=== PATIENT | male | born 1970 | race Caucasian/White ===

== ENCOUNTER 2017-09-12 18:13 | Emergency (ER) | payer BC ==
[~2017-09-12] VITALS: Ht 177.8 cm; Wt 106.6 kg
[~2017-09-12 18:13] MED LIST: ACIPHEX 20 MG T20 M1 PO; AMLODIPINE BESY10 MG PO; APAP500 PO; CLEOCIN HCL150 MG PO; CLEOCIN HCL300 MG PO; FLONASE16 GM NASAL; HYDROCODON-ACE1 EACH PO; LEVAQUIN 500 M500 M2 PO; LISINOPRIL30 MG PO; MUCINEX600 MG PO; NORCO 5-325 TA1 EAC1 PO; NORCO 5-325 TA1 EACH PO; PREDNISONE 1 MG1 M1; PREDNISONE 20 M20 M1 PO; PREVACID30 MG PO; PROTONIX40 M1; PROTONIX40 M2 PO; SKELAXIN 800 M800 M1 PO; VENTOLIN HFA 1818 GM INH; ZPAK; ZPAK PO
[2017-09-12] MEDS ORDERED: MEDROLDOSEPACK PO (18:40)
[2017-09-12] MEDS ORDERED: TESTONE CI200 MG/1 M IM (18:40)
[2017-09-12 18:51] VITALS: BP 142/99
== END 2017-09-12 18:51 | disposition home or self-care (01) ==
LOC: M.ERS 18:13
DX: J02.9 Acute pharyngitis, unspecified (principal); J30.9 Allergic rhinitis, unspecified; H65.92 Unspecified nonsuppurative otitis media, left ear; I10 Essential (primary) hypertension; E78.00 Pure hypercholesterolemia, unspecified; Z88.0 Allergy status to penicillin

== ENCOUNTER 2018-04-19 14:15 | Emergency (ER) | payer BC ==
[~2018-04-19] VITALS: Ht 177.8 cm; Wt 106.1 kg
[~2018-04-19 14:15] MED LIST changes: +MEDROLDOSEPACK PO; +TESTONE CI200 MG/1 M IM
[2018-04-19] MEDS ORDERED: KEFLEX500 M1 PO (15:01)
[2018-04-19 15:11] VITALS: BP 153/95
== END 2018-04-19 15:12 | disposition home or self-care (01) ==
LOC: M.ERS 14:15
DX: L03.211 Cellulitis of face (principal); I10 Essential (primary) hypertension; E78.00 Pure hypercholesterolemia, unspecified; Z87.01 Personal history of pneumonia (recurrent); Z88.0 Allergy status to penicillin

== ENCOUNTER 2018-06-21 17:16 | Emergency (ER) | payer BC ==
[~2018-06-21] VITALS: Ht 177.8 cm; Wt 104.3 kg
[~2018-06-21 17:16] MED LIST changes: +ANDROGEL1.25 GM TOP; +KEFLEX500 M1 PO; -TESTONE CI200 MG/1 M IM
[2018-06-21] MEDS ORDERED: ATORVASTATIN CA40 MG PO (17:23)
[2018-06-21 17:59] LABS: ABSOLUTE BASOPHILS 0.1 thou/uL (0.0-0.2); ABSOLUTE EOSINOPHILS 0.1 thou/uL (0.0-0.7); ABSOLUTE LYMPHOCYTES 1.8 thou/uL (0.8-5.3); ABSOLUTE MONOCYTES 0.5 thou/uL (0.0-1.2); ABSOLUTE NEUTROPHILS 4.9 thou/uL (1.6-8.1); BASOPHILS 0.7 %; HEMATOCRIT 43.9 % (42.0-52.0); HEMOGLOBIN 14.7 gm/dL (14.0-18.0); LYMPHOCYTES 24.7 %; MCHC 33.6 g/dL (28.0-37.0); MCV 86.5 fL (80.0-100.0); MONOCYTES 6.9 %; MPV 8.2 fl. (7.2-11.1); NUCLEATED RBCS 0 /100WBC; PLATELET COUNT* 256 thou/uL (150-400); POLYS 65.7 %; RBC 5.08 mil/uL (4.50-6.00); RDW-CV 13.9 % (10.5-14.5); WBC 7.5 thou/uL (4.0-11.0)
[2018-06-21 18:08] LABS: ANION GAP 8 mmol/L (7-16); BUN 19 mg/dL (7-18); CALCIUM 8.6 mg/dL (8.5-10.1); CHLORIDE 106 mmol/L (98-107); CO2 27 mmol/L (21-32); CREATININE 1.1 mg/dL (0.6-1.3); GLUCOSE 128 mg/dL (70-99); POTASSIUM 3.5 mmol/L (3.5-5.1); SODIUM 141 mmol/L (136-145)
[2018-06-21 18:11] LABS: PROTIME 10.3 Seconds (9.20-11.50)
[2018-06-21 18:18] LABS: ALBUMIN 4.1 g/dL (3.4-5.0); ALKALINE PHOSPHATASE 47 U/L (46-116); LIPASE 314 U/L (73-393); NT-PRO BRAIN NAT PEPTIDE 16 pg/mL (<300); SGOT 48 U/L (15-37); SGPT 32 U/L (30-65); TOTAL BILIRUBIN 0.4 mg/dL (<0.1-1.0); TOTAL PROTEIN 7.3 g/dL (6.4-8.2); TROPONIN-I LEVEL <0.06 ng/mL (<0.06)
[2018-06-21] MEDS ORDERED: CARAFATE 1 GM TA1 G1 PO (20:10)
[2018-06-21] MEDS ORDERED: TESSALON PERLE100 MG PO (20:10)
[2018-06-21 20:49] VITALS: BP 147/89
--- NOTE | 2018-06-23 12:26 | EKG ---
[place] [address] ELECTROCARDIOGRAM REPORT Name: YOANA CAM Room: 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 : 1970 Requested By: Isma Arreguin Order Number: [id number] MD: Anderson Bangura Measurements Intervals [place] Rate: 101 P: 22 CO: 126 QRS: 5 QRSD: 90 T: 6 QT: 317 QTc: 411 Interpretive Statements Sinus tachycardia Probable left atrial enlargement Left ventricular hypertrophy, by voltage Compared to ECG 02/23/2012 09:59:19 Left ventricular hypertrophy now present Sinus rhythm no longer present Electronically Signed On 06-23-2018 12:26:29 SALES EXHIBITOR by Anderson Bangura [email or web address] <ELECTRONICALLY SIGNED> By: Anderson Bangura MD, FAC 06/23/18 1226 1720 1720 Anderson Bangura MD, [facility] /EPI
--- NOTE | 2018-06-23 12:27 | EKG ---
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 : 1970 Requested By: Melvin Nuñez Order Number: [id number] MD: Anderson Bangura Measurements Intervals [place] Rate: 86 P: 13 NC: 132 QRS: -3 QRSD: 93 T: 2 QT: 354 QTc: 424 Interpretive Statements Sinus rhythm Possible left atrial enlargement Left ventricular hypertrophy, by voltage Baseline wander in lead(s) V1 Compared to ECG 02/23/2012 09:59:19 Left ventricular hypertrophy now present Electronically Signed On 06-23-2018 12:27:28 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
== END 2018-06-21 20:49 | disposition home or self-care (01) ==
LOC: M.ERS 17:16
PROVIDERS: Emergency Medicine
DX: R07.89 Other chest pain (principal); I10 Essential (primary) hypertension; E78.00 Pure hypercholesterolemia, unspecified; Z88.0 Allergy status to penicillin

== ENCOUNTER 2018-08-06 07:52 | Emergency (ER) | payer BC ==
[~2018-08-06] VITALS: Ht 177.8 cm; Wt 106.6 kg
--- NOTE | ~2018-08-06 | EKG ---
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
[~2018-08-06 07:52] MED LIST changes: +ATORVASTATIN CA40 MG PO; +CARAFATE 1 GM TA1 G1 PO; +TESSALON PERLE100 MG PO
[2018-08-06 08:13] LABS: ABSOLUTE BASOPHILS 0.1 thou/uL (0.0-0.2); ABSOLUTE EOSINOPHILS 0.2 thou/uL (0.0-0.7); ABSOLUTE LYMPHOCYTES 1.7 thou/uL (0.8-5.3); ABSOLUTE MONOCYTES 0.5 thou/uL (0.0-1.2); ABSOLUTE NEUTROPHILS 4.4 thou/uL (1.6-8.1); BASOPHILS 0.8 %; EOSINOPHILS 2.8 %; HEMATOCRIT 46.3 % (42.0-52.0); HEMOGLOBIN 15.3 gm/dL (14.0-18.0); LYMPHOCYTES 24.9 %; MCH 28.1 pg (26.0-34.0); MONOCYTES 7.6 %; MPV 8.5 fl. (7.2-11.1); NUCLEATED RBCS 0 /100WBC; PLATELET COUNT* 289 thou/uL (150-400); POLYS 63.9 %; RBC 5.45 mil/uL (4.50-6.00); RDW-CV 12.9 % (10.5-14.5); WBC 6.9 thou/uL (4.0-11.0)
[2018-08-06 08:25] LABS: APTT 28.7 Seconds (25.0-31.3); PROTIME 10.1 Seconds (9.20-11.50)
[2018-08-06 08:31] LABS: ANION GAP 6 mmol/L (7-16); BUN 17 mg/dL (7-18); CALCIUM 9.4 mg/dL (8.5-10.1); CHLORIDE 103 mmol/L (98-107); CO2 29 mmol/L (21-32); CREATININE 1.1 mg/dL (0.6-1.3); GLUCOSE 101 mg/dL (70-99); POTASSIUM 3.8 mmol/L (3.5-5.1); SODIUM 138 mmol/L (136-145); TROPONIN-I LEVEL <0.06 ng/mL (<0.06)
[2018-08-06 08:34] LABS: ALBUMIN 4.2 g/dL (3.4-5.0); ALKALINE PHOSPHATASE 49 U/L (46-116); CK-MB MASS 8.4 ng/mL (<0.5-3.6); LIPASE 134 U/L (73-393); MAGNESIUM 2.1 mg/dL (1.8-2.4); NT-PRO BRAIN NAT PEPTIDE 10 pg/mL (<300); SGOT 26 U/L (15-37); SGPT 24 U/L (30-65); TOTAL BILIRUBIN 0.5 mg/dL (<0.1-1.0); TOTAL PROTEIN 7.7 g/dL (6.4-8.2)
[2018-08-06 08:45] VITALS: BP 151/99
== END 2018-08-06 08:46 | disposition home or self-care (01) ==
LOC: M.ERS 07:52
PROVIDERS: Family Medicine
DX: R07.89 Other chest pain (principal); I10 Essential (primary) hypertension; E78.00 Pure hypercholesterolemia, unspecified; E78.5 Hyperlipidemia, unspecified; Z88.0 Allergy status to penicillin

== ENCOUNTER 2019-01-09 03:57 | Emergency (ER) | payer BC ==
[~2019-01-09] VITALS: Ht 177.8 cm; Wt 106.6 kg
[2019-01-09 05:12] LABS: ABSOLUTE BASOPHILS 0.1 thou/uL (0.0-0.2); ABSOLUTE EOSINOPHILS 0.2 thou/uL (0.0-0.7); ABSOLUTE MONOCYTES 0.7 thou/uL (0.0-1.2); ABSOLUTE NEUTROPHILS 10.4 thou/uL (1.6-8.1); BASOPHILS 0.4 %; EOSINOPHILS 1.9 %; HEMATOCRIT 46.4 % (42.0-52.0); HEMOGLOBIN 15.3 gm/dL (14.0-18.0); MCH 27.7 pg (26.0-34.0); MCHC 32.9 g/dL (28.0-37.0); MCV 84.1 fL (80.0-100.0); MONOCYTES 5.5 %; MPV 8.6 fl. (7.2-11.1); NUCLEATED RBCS 0 /100WBC; PLATELET COUNT* 247 thou/uL (150-400); POLYS 84.2 %; RBC 5.52 mil/uL (4.50-6.00); RDW-CV 13.3 % (10.5-14.5); WBC 12.3 thou/uL (4.0-11.0)
[2019-01-09 05:27] LABS: CALCIUM 9.1 mg/dL (8.5-10.1); POTASSIUM 3.8 mmol/L (3.5-5.1)
[2019-01-09 05:32] LABS: ALBUMIN 4.1 g/dL (3.4-5.0); TOTAL BILIRUBIN 0.5 mg/dL (<0.1-1.0); TOTAL PROTEIN 7.6 g/dL (6.4-8.2)
[2019-01-09] MEDS ORDERED: FLAGYL500 M1 PO (06:41)
[2019-01-09] MEDS ORDERED: ZOFRAN ODT4 MG PO (06:41)
[2019-01-09] MEDS ORDERED: CIPROFLOXACIN500 M1 PO (06:41)
[2019-01-09 06:54] VITALS: BP 142/85
== END 2019-01-09 06:56 | disposition home or self-care (01) ==
LOC: M.ERS 03:57
PROVIDERS: Emergency Medicine
DX: K52.9 Noninfective gastroenteritis and colitis, unspecified (principal); K57.32 Diverticulitis of large intestine without perforation or abscess without bleeding; I10 Essential (primary) hypertension; E78.00 Pure hypercholesterolemia, unspecified; Z87.01 Personal history of pneumonia (recurrent); Z88.0 Allergy status to penicillin

== ENCOUNTER 2020-08-03 07:28 | Emergency (ER) | payer BC ==
[~2020-08-03] VITALS: Ht 177.8 cm; Wt 106.6 kg
[~2020-08-03 07:28] MED LIST changes: +CIPROFLOXACIN500 M1 PO; +FLAGYL500 M1 PO; +ZOFRAN ODT4 MG PO
[2020-08-03 07:35] VITALS: BP 173/110
[2020-08-03] MEDS ORDERED: MOBIC7.5 MG PO (07:43)
[2020-08-03] MEDS ORDERED: CLINDAMYCIN HC300 MG PO (07:43)
== END 2020-08-03 08:00 | disposition home or self-care (01) ==
LOC: M.ERS 07:28
DX: K02.9 Dental caries, unspecified (principal); I10 Essential (primary) hypertension; E78.00 Pure hypercholesterolemia, unspecified; Z87.01 Personal history of pneumonia (recurrent); Z88.0 Allergy status to penicillin

== ENCOUNTER 2021-05-03 21:52 | Emergency (ER) | payer BC ==
[~2021-05-03] VITALS: Ht 177.8 cm; Wt 108.9 kg
[~2021-05-03 21:52] MED LIST changes: +CLINDAMYCIN HC300 MG PO; +MOBIC7.5 MG PO
[2021-05-03 22:31] LABS: NUCLEATED RBCS 0 /100WBC
[2021-05-03 22:33] LABS: HEMATOCRIT 46.6 % (42.0-52.0); MCH 25.8 pg (26.0-34.0); MCHC 32.2 g/dL (28.0-37.0); MCV 80.1 fL (80.0-100.0); MPV 8.3 fl. (7.2-11.1); PLATELET COUNT* 335 thou/uL (150-400); RBC 5.82 mil/uL (4.50-6.00); RDW-CV 17.9 % (10.5-14.5); WBC 16.1 thou/uL (4.0-11.0)
[2021-05-03 22:42] LABS: CALCIUM 9.1 mg/dL (8.5-10.1); CREATININE 1.2 mg/dL (0.6-1.3); POTASSIUM 4.8 mmol/L (3.5-5.1)
[2021-05-03 23:26] LABS: ABSOLUTE MONOCYTES 0.8 thou/uL (0.0-1.2); ABSOLUTE NEUTROPHILS 14.3 thou/uL (1.6-8.1); ATYPICAL MONONUCLEARS 2 %; LARGE PLATELETS RARE; PLATELET ESTIMATE ADEQUATE
[2021-05-03 23:27] LABS: ANISOCYTOSIS Occasional
[2021-05-03 23:41] VITALS: BP 143/65
== END 2021-05-03 23:43 | disposition home or self-care (01) ==
LOC: M.ERS 21:52
PROVIDERS: Emergency Medicine
DX: R04.0 Epistaxis (principal); I10 Essential (primary) hypertension; E78.00 Pure hypercholesterolemia, unspecified; Z88.0 Allergy status to penicillin; Z88.2 Allergy status to sulfonamides; Z79.899 Other long term (current) drug therapy

== ENCOUNTER 2021-07-17 14:04 | Emergency (ER) | payer BC ==
[~2021-07-17] VITALS: Ht 167.6 cm; Wt 90.7 kg
[2021-07-17 14:55] LABS: INFLUENZA A ANTIGEN Negative (Negative); INFLUENZA B ANTIGEN Negative (Negative)
[2021-07-17] MEDS ORDERED: ZOFRAN ODT4 MG DISSOLVE (15:02)
[2021-07-17] MEDS ORDERED: DEXAMETHASONE 44 M1 PO (15:02)
[2021-07-17 15:05] VITALS: BP 174/100
== END 2021-07-17 15:06 | disposition home or self-care (01) ==
LOC: M.ERS 14:04
PROVIDERS: Family Medicine
DX: B34.9 Viral infection, unspecified (principal); Z20.822 Contact with and (suspected) exposure to COVID-19; I10 Essential (primary) hypertension; E78.00 Pure hypercholesterolemia, unspecified; Z79.899 Other long term (current) drug therapy; Z88.0 Allergy status to penicillin; Z88.2 Allergy status to sulfonamides